=== PATIENT | male | born 1970 | race Hispanic/Latino ===

== ENCOUNTER 2017-03-16 15:39 | Emergency (ER) | payer BC ==
[~2017-03-16] VITALS: Ht 177.8 cm; Wt 80.0 kg
[~2017-03-16 15:39] MED LIST: AMOXICILLIN/CL875 MG PO; AMOXICILLIN500 M2 PO; AMOXICILLIN500 MG PO; ANUCORT-HC25 MG RE; AUGMENTIN875 MG OR; AUGMENTIN875TAB PO; BACTRIM DS1 TAB PO; CIPROFLOXACN500 MG PO; CLARITHROMYC500 MG PO; HYDROCHLOROT12.5 MG PO; K-LOR20 MEQ OR; LEVOTHYROXIN50 MC1 PO; LEVOTHYROXIN75 MC1 PO; LEVOTHYROXIN88 MC1 PO; LISINOPRIL10 MG PO; MEDDOSEPAK PO; METOPROL TAR25 MG PO; MUCINEX600 MG PO; NO HOME MEDS; PRILOSEC20 MG PO; ROCEPHIN 1 GM1 GM IM; SIMVASTATIN20 MG PO; TIZANIDINE4 MG PO; ULTRAM50 M1 PO; ZOFRAN ODT4 MG PO
[2017-03-16 16:49] LABS: HEMOGLOBIN 15.4 g/dl (14.0-18.0); IMMATURE GRANULOCYTES 0.6 % (0.0-1.0); MEAN CELL VOLUME 90.5 fL CALC (80.0-100.0); MEAN CORPUSCULAR HGB CONC 34.2 g/L CALC (32.0-36.0); NEUT# 4.16 thou/uL (1.82-7.42); RED BLOOD COUNT 4.97 mill/uL (4.70-6.10); RED CELL DISTRI WIDTH 12.1 % (11.5-15.5)
[2017-03-16 17:15] LABS: ALBUMIN 4.7 g/dL (3.2-5.0); ALKALINE PHOSPHATASE 77 u/l (38-126); ANION GAP 17 (6-22 (CALC)); BILIRUBIN, TOTAL 0.5 mg/dL (0.0-1.4); BUN 16 mg/dL (9-20); BUN/CREATININE RATIO 19 (12-20 (CALC)); CALCIUM 9.5 mg/dL (8.4-10.2); CARBON DIOXIDE 25 mmol/l (22-30); CHLORIDE 103 mmol/l (95-108); CREATININE 0.8 mg/dL (0.7-1.3); GFR > 60 ML/MIN (>=60 (CALC)); GFR FOR AFR.AMER. > 60 ML/MIN (>=60 (CALC)); GLUCOSE 112 mg/dL (75-110); SGOT/AST 34 u/l (17-59); SGPT/ALT 52 u/l (21-72); SODIUM 142 mmol/l (137-146); TOTAL PROTEIN 7.6 g/dL (6.3-8.2)
[2017-03-16 17:28] LABS: MYOGLOBIN 63 ng/mL (0 - 121)
[2017-03-16 18:16] VITALS: BP 140/85
== END 2017-03-16 18:16 | disposition home or self-care (01) | DRG 305 ==
LOC: ED 15:39
PROVIDERS: Emergency Medicine
DX: I10 Essential (primary) hypertension (principal); E03.9 Hypothyroidism, unspecified; E78.00 Pure hypercholesterolemia, unspecified; F17.210 Nicotine dependence, cigarettes, uncomplicated

== ENCOUNTER 2018-03-24 13:49 | Emergency (ER) | payer BC ==
[~2018-03-24] VITALS: Ht 177.8 cm; Wt 86.3 kg
[2018-03-24] MEDS ORDERED: TORADOL PO (15:03)
[2018-03-24] MEDS ORDERED: AUGMENTIN500TAB PO (15:03)
[2018-03-24 15:12] VITALS: BP 138/98
== END 2018-03-24 15:29 | disposition home or self-care (01) | DRG 605 ==
LOC: ED 13:49
PROC: 0HQDXZZ Repair Right Lower Arm Skin, External Approach (ICD-10-PCS; principal; 2018-03-24)
DX: S51.851A Open bite of right forearm, initial encounter (principal); I10 Essential (primary) hypertension; W54.0XXA Bitten by dog, initial encounter; Y93.89 Activity, other specified; Y92.009 Unspecified place in unspecified non-institutional (private) residence as the place of occurrence of the external cause

== ENCOUNTER 2018-04-03 10:49 | Emergency (ER) | payer BC ==
[~2018-04-03] VITALS: Ht 177.8 cm; Wt 85.0 kg
[~2018-04-03 10:49] MED LIST changes: +AUGMENTIN500TAB PO; +TORADOL PO
[2018-04-03 11:03] VITALS: BP 136/77
== END 2018-04-03 11:07 | disposition home or self-care (01) | DRG 950 ==
LOC: ED 10:49
DX: S51.811D Laceration without foreign body of right forearm, subsequent encounter (principal); I10 Essential (primary) hypertension; E07.9 Disorder of thyroid, unspecified; X58.XXXD Exposure to other specified factors, subsequent encounter

== ENCOUNTER 2019-06-26 08:02 | Emergency (ER) | payer SELFPAY ==
[~2019-06-26] VITALS: Ht 177.8 cm; Wt 80.0 kg
[2019-06-26] MEDS ORDERED: LEVOTHROID125 MCG PO (08:15)
[2019-06-26] MEDS ORDERED: AZITHROMYC100 MG/5 M PO (08:16)
[2019-06-26 08:58] LABS: HEMATOCRIT 43.2 % (39.0-50.0); HEMOGLOBIN 14.8 g/dl (14.0-18.0); IMMATURE GRANULOCYTES 0.3 % (0.0-5.0); MEAN CELL VOLUME 90.8 fL CALC (80.0-100.0); MEAN CORPUSCULAR HGB 31.1 pG CALC (26.0-32.0); MEAN CORPUSCULAR HGB CONC 34.3 g/L CALC (32.0-36.0); NEUT# 6.21 thou/uL (1.82-7.42); RED BLOOD COUNT 4.76 mill/uL (4.70-6.10); RED CELL DISTRI WIDTH 12.3 % (11.5-15.5)
[2019-06-26 09:21] LABS: ANION GAP 14 (6-22 (CALC)); BUN 11 mg/dL (9-20); BUN/CREATININE RATIO 15 (12-20 (CALC)); CARBON DIOXIDE 24 mmol/l (22-30); CHLORIDE 106 mmol/l (95-108); CREATININE 0.7 mg/dL (0.7-1.3); GFR > 60 ML/MIN (>=60 (CALC)); GFR FOR AFR.AMER. > 60 ML/MIN (>=60 (CALC)); POTASSIUM 3.8 mmol/l (3.5-5.1); SODIUM 140 mmol/l (137-146)
[2019-06-26 09:47] VITALS: BP 149/76
== END 2019-06-26 09:58 | disposition home or self-care (01) | DRG 379 ==
LOC: ED 08:02
PROVIDERS: Family Medicine
DX: K92.1 Melena (principal); I10 Essential (primary) hypertension

== ENCOUNTER 2020-03-04 08:13 | Emergency (ER) | payer BC ==
[~2020-03-04 08:13] MED LIST changes: +AZITHROMYC100 MG/5 M PO; +LEVOTHROID125 MCG PO
[2020-03-04 08:55] VITALS: BP 160/86
== END 2020-03-04 09:01 | disposition home or self-care (01) | DRG 605 ==
LOC: ED 08:13
DX: S80.12XA Contusion of left lower leg, initial encounter (principal); I10 Essential (primary) hypertension; W54.8XXA Other contact with dog, initial encounter